=== PATIENT | female | born 1980 | race Asian ===

== ENCOUNTER 2021-09-10 21:38 | Inpatient (IN) ==
[2021-09-10] MEDS ORDERED: OXYTOCIN 30 UNITS/500 ML BAG IV PRN (22:18)
[2021-09-10] MEDS: LACTATED RINGER'S 1,000 ML IV PRN (22:35)
[2021-09-10 22:48] LABS: Hematocrit (blood only) 39.2 % (37-47); Hemoglobin 13.6 g/dL (12.0-16.0); Mean Corpuscular Hemoglobin 32.8 pg (25-34); Mean Corpuscular Hgb Conc 34.7 g/dL (32-36); Mean Corpuscular Volume 94.5 fL (80-100); Mean Platelet Volume 10.9 fL (7.4-10.4); Platelet Count 192 K/uL (130-400); RDW Coefficient of Variation 12.9 % (11.5-14.5); RDW Standard Deviation 44.5 fL (36.4-46.3); Red Blood Count 4.15 M/uL (4.2-5.4); White Blood Count 10.23 K/uL (4.8-10.8)
[2021-09-11] MEDS: LACTATED RINGER'S 1,000 ML IV PRN ×2 (00:53→06:01)
[2021-09-11] MEDS ORDERED: BUPIVACAINE 0.25% 30 ML VIAL ONE (01:04)
[2021-09-11] MEDS ORDERED: ePHEDrine sulfate 50 MG/ML AMP ONE (01:04)
[2021-09-11] MEDS ORDERED: SODIUM CHLORIDE 0.9% INJ 10 ML VIAL ONE (01:04)
[2021-09-11] MEDS ORDERED: fentaNYL 2MCG/ML ROPIVACAINE 1.25MG/ML 100 ML BAG EPI ONE (01:05)
[2021-09-11] MEDS ORDERED: fentaNYL citrate 100 MCG/2 ML VIAL ONE (01:05)
--- NOTE | 2021-09-11 01:35 | Anesthesiology Consultation ---
Date of Service September 11, 2021 Assessment & Plan (1) Encounter for pre-operative examination: Chart Review Chart Review: Acceptable Risk for Surgery and Patient NOT seen in Pre Admission Testing Consults Requested none History Height/Weight Height: 5 ft 2 in Weight: 61.235 kg Allergies Allergy/AdvReac Type Severity Reaction Status Date / Time No Known Allergies Allergy Verified 09/05/21 14:00 Medications Home Medications Medication Instructions Recorded Confirmed Last Taken aspirin 81 mg capsule 81 mg PO DAILY 07/29/21 09/10/21 09/10/21 21:50 prenat.vits,vineet,brj-qpdo-[id number] 1 tab PO DAILY 07/29/21 09/10/21 09/10/21 21:50 Active Medications Generic Name Dose Route Start Last Admin Trade Name Freq PRN Reason Stop Dose Admin Lactated Ringer's 1,000 mls @ 125 mls/hr 09/10/21 22:18 09/11/21 00:53 Lr IV 09/12/21 22:17 Infused .Q8H PRN Infusion L&D Protocol Protocol Past Medical History Medical History Varicella vaccination Past Family History Family History Father Stroke Hypertension Denies family history of Breast cancer Colorectal cancer Past Surgical History Surgical History Hx of wisdom tooth extraction Social History Smoking Status: Never smoker Hx Alcohol Use: No Hx Substance Use: No Physical Exam Vital Signs Last Vital Signs Temp 37.1 C 09/11/21 00:30 Pulse 100 H 09/10/21 21:45 Resp 18 09/11/21 00:30 BP 108/69 09/10/21 21:45 Testing Laboratory Results 09/10/21 22:27
[2021-09-11] MEDS ORDERED: NALOXONE HCL 1 MG in SODIUM CHLORIDE 0.9% 1000ML 1,000 ML IV PRN (02:06)
[2021-09-11] MEDS ORDERED: ONDANSETRON INJ 2 MG/ML 2 ML VIAL IV PRN (02:06)
[2021-09-11] MEDS ORDERED: NALOXONE HCL 0.4 MG/1 ML VIAL/CARP IV PRN (02:06)
[2021-09-11] MEDS ORDERED: NALBUPHINE HCL INJ 10 MG/ML AMP IV PRN (02:06)
[2021-09-11] MEDS ORDERED: fentaNYL 2MCG/ML ROPIVACAINE 1.25MG/ML 100 ML BAG EPI PRN (02:06)
[2021-09-11] MEDS ORDERED: ePHEDrine sulfate 50 MG/ML AMP IV PRN (02:06)
[2021-09-11] MEDS ORDERED: diphenhydrAMINE 50 MG/ML VIAL IV PRN (02:06)
--- NOTE | 2021-09-11 08:10 | Labor Progress Brief Note ---
Date of Service September 11, 2021 Subjective Comfortable with epidural Assessment & Plan (1) SROM (spontaneous rupture of membranes): Plan: Allowing spontaneous labor. Epidural. GBS neg. Anticipate . (2) Normal labor and delivery: (3) Elderly primigravida: Admission and Anticipated Discharge Date Admission Date: September 10, 2021 Physical Exam Genitourinary: 100/+1 FHT Cat 1 Wisner Q2-3 Results & Data ([facility]) Vital Signs (Past 12 Hours) Vital Signs Temp Pulse Resp BP Pulse Ox 09/11/21 08:06 114 H 89 L 09/11/21 08:05 105 H 117/77 99 09/11/21 08:00 100 H 99 09/11/21 07:55 104 H 99 09/11/21 07:50 119 H 97 09/11/21 07:48 106 H 114/73 09/11/21 07:45 99 H 99 09/11/21 07:40 95 H 99 09/11/21 07:35 110 H 115/71 99 09/11/21 07:30 98 H 100 09/11/21 07:25 100 H 99 09/11/21 07:20 111 H 99 09/11/21 07:19 97 H 115/69 09/11/21 07:15 105 H 99 09/11/21 07:10 109 H 98 09/11/21 07:05 109 H 98 09/11/21 07:04 97.9 F 99 H 20 129/76 09/11/21 07:00 102 H 98 09/11/21 06:55 100 H 99 09/11/21 06:50 100 H 97 09/11/21 06:49 94 H 118/70 09/11/21 06:45 102 H 98 09/11/21 06:40 101 H 99 09/11/21 06:35 108 H 99 09/11/21 06:33 102 H 111/65 09/11/21 06:30 99 H 99 09/11/21 06:25 99 H 97 09/11/21 06:20 101 H 98 09/11/21 06:18 102 H 109/65 09/11/21 06:16 98 H 93 09/11/21 06:15 106 H 98 09/11/21 06:10 92 H 96 09/11/21 06:05 92 H 98 09/11/21 06:04 95 H 110/67 09/11/21 06:00 94 H 98 09/11/21 05:55 96 H 97 09/11/21 05:50 93 H 98 09/11/21 05:48 90 107/68 09/11/21 05:45 90 97 09/11/21 05:40 95 H 98 09/11/21 05:35 187 H 83 L 09/11/21 05:34 88 143/70 H 09/11/21 05:33 85 92 09/11/21 05:30 86 100 09/11/21 05:27 90 91 09/11/21 05:25 89 18 99 09/11/21 05:20 94 H 93 09/11/21 05:18 95 H 114/62 09/11/21 05:15 94 H 95 09/11/21 05:10 88 100 09/11/21 05:05 88 98 09/11/21 05:04 102 H 116/69 09/11/21 05:00 98 H 87 L 09/11/21 04:59 98.6 F 18 09/11/21 04:57 95 H 94 09/11/21 04:55 95 H 92 09/11/21 04:50 92 H 94 09/11/21 04:49 190 H 102/62 09/11/21 04:45 89 100 09/11/21 04:44 87 91 09/11/21 04:40 96 H 99 09/11/21 04:35 92 H 83 L 09/11/21 04:30 94 H 65 L 09/11/21 04:25 95 H 88 L 09/11/21 04:24 92 H 91 09/11/21 04:20 98 H 100 09/11/21 04:15 94 H 100 09/11/21 04:12 99 H 93 09/11/21 04:10 98 H 100 09/11/21 04:05 84 100 09/11/21 04:03 94 H 97/58 L 09/11/21 04:00 87 100 09/11/21 03:56 94 H 91 09/11/21 03:55 94 H 93 09/11/21 03:50 90 109/64 92 09/11/21 03:49 90 88 L 09/11/21 03:44 87 80 L 09/11/21 03:39 97 H 90 09/11/21 03:38 95 H 93 09/11/21 03:34 88 98 09/11/21 03:33 90 117/68 09/11/21 03:31 87 89 L 09/11/21 03:30 98.4 F 18 09/11/21 03:29 85 99 09/11/21 03:24 94 H 100 09/11/21 03:23 83 90 09/11/21 03:19 85 100 09/11/21 03:18 89 100/62 85 L 09/11/21 03:14 88 100 09/11/21 03:09 85 97 09/11/21 03:04 90 100 09/11/21 03:03 82 105/61 09/11/21 03:00 18 09/11/21 02:59 87 100 09/11/21 02:54 87 100 09/11/21 02:49 92 H 108/61 100 09/11/21 02:44 92 H 87 L 09/11/21 02:39 102 H 100 09/11/21 02:34 100 H 112/65 99 09/11/21 02:31 91 H 93 09/11/21 02:30 18 09/11/21 02:29 100 H 98 09/11/21 02:24 104 H 100 09/11/21 02:20 18 09/11/21 02:19 103 H 100 09/11/21 02:18 107 H 112/64 09/11/21 02:16 111 H 105/62 09/11/21 02:15 18 09/11/21 02:14 104 H 114/72 99 09/11/21 02:12 106 H 110/68 09/11/21 02:10 102 H 18 110/67 09/11/21 02:09 103 H 100 09/11/21 02:08 97.5 F L 106 H 109/67 09/11/21 02:06 110 H 114/72 09/11/21 02:05 18 09/11/21 02:04 97 H 115/72 100 09/11/21 01:59 101 H 98 09/11/21 01:54 106 H 100 09/11/21 01:53 94 H 93 09/11/21 01:49 102 H 99 09/11/21 01:40 90 123/68 09/11/21 00:30 98.8 F 18 09/10/21 21:51 98.6 F 18 09/10/21 21:45 100 H 108/69 Coding Level of Care Code None Diagnoses SROM (spontaneous rupture of membranes) Normal labor and delivery O80 Elderly primigravida O09.519
[2021-09-11] MEDS ORDERED: OXYTOCIN 30 UNITS/500 ML BAG IV PRN (10:49)
[2021-09-11] MEDS ORDERED: Nursing to Pharmacy Communication SCH (11:30)
--- NOTE | 2021-09-11 14:08 | Delivery Summary ---
Vaginal Delivery Summary Date of Service September 11, 2021 Vaginal Delivery Summary DIAGNOSES: 1. Delgado intrauterine at 37w6d gestation. 2. Spontaneous onset of labor. 3. Group B Streptococcus Neg. PROCEDURE: Spontaneous vaginal delivery and repair of 2nd degree laceration. SURGEON: Elly Almnaza MD. MATERIAL CONTROL ASSOCIATE: None. ESTIMATED BLOOD LOSS: 400 mL. COMPLICATIONS: None. PLACENTA: Spontaneous and intact with a 3-vessel cord. DISPOSITION: Stable to labor and delivery. DESCRIPTION: The patient pushed well and brought the head to in DOA position. Due to prolonged and some labial edema, a midline episiotomy was offered and accepted. The 1cm midline epis was made, and with the next push, it was extended approximately another 5mm. The infant's head then delivered with a maternal pushing effort and restituted with the R shoulder anterior. There was no nuchal cord. Due to evidently large size, the patient was positioned in Frida prior to the next pushing effort, and gentle downward traction was applied through a concerted pushing effort by the mother, which resulted in delivery of the anterior shoulder. The posterior shoulder did not immediately deliver, but the maternal pushing effort was prolonged and uncoordinated, and many voices were coaching her at once. I asked for quiet, asked the mother to take a focused breath, and to make a single strong pushing effort, which delivered the posterior shoulder promptly without any maneuvers. The complete delivery of the shoulders was less than 60 seconds from delivery of the head, hence I do not feel a dignosis of dystocia is formally merited. The body delivered without any difficulty, and the was placed on the maternal abdomen. It was vigorous and moving all extremities, and making respiratory efforts. The cord was doubly clamped by the MD and then cut by the FOB. The placenta delivered spontaneously and was noted to be intact and with a 3VC. The cervix, vagina and perineum were examined and were found to have what amounted to a second degree laceration, the majority of which was likely the episiotomy with perhaps a tiny bit of natural extension. The sphincter was exposed but not involved, and a hemorrhoid approx 2cm in size which had developed during 2nd stage was loose and deflating. Repair of the perineum was accomplished with 2-0 and 3-0 vicryl in the usual manner, using a crown stitch to rebuild the perineal body. The fundus was firm and lochia minimal immediately after delivery. [facility] Vaginal Delivery Charge Vaginal Delivery Codes: 30756 global code for the antepartum, delivery, and post-
[2021-09-11] MEDS ORDERED: DIPHTHERIA/TETANUS/PERTUSSIS 0.5 ML SYR/VIAL IM ONE (14:13)
[2021-09-11] MEDS ORDERED: BENZOCAINE 20% AER SPR 82.5 GM CAN EXT PRN (14:13)
[2021-09-11] MEDS ORDERED: HYDROCORTISONE ACETATE 25 MG SUPP PR PRN (14:13)
[2021-09-11] MEDS ORDERED: ACETAMINOPHEN 325 MG TAB PO PRN (14:13)
[2021-09-11] MEDS ORDERED: oxyCODONE/ACETAMINOPHEN 5mg/325mg TAB PO PRN (14:13)
[2021-09-11] MEDS ORDERED: SUPERCREAM 0.870% 15 GM JAR EXT PRN (14:13)
--- NOTE | 2021-09-11 14:37 | Anesthesia Procedure Note ---
Date of Service September 11, 2021 Anesthesia Post Epidural Note Vital Signs Vital Signs: Temp Pulse Resp BP Pulse Ox 36.9 C 113 H 20 97/55 L 94 09/11/21 08:48 09/11/21 14:33 09/11/21 08:48 09/11/21 14:33 09/11/21 13:48 Notes Mental Status: alert / awake / arousable Nausea / Vomiting: adequately controlled Pain: adequately controlled Airway Patency, RR, SpO2: stable & adequate BP & HR: stable & adequate Hydration State: stable & adequate Neuraxial Anesthesia: was administered and sensory block is resolving Anesthetic Complications: no major complications apparent Epidural: Removed without complications and With tip intact
[2021-09-11] MEDS: DOCUSATE SODIUM 100 MG CAP PO SCH (21:01)
[2021-09-11] MEDS: IBUPROFEN 600 MG TAB PO PRN (21:01)
[2021-09-12] MEDS: IBUPROFEN 600 MG TAB PO PRN ×5 (01:19→18:00)
--- NOTE | 2021-09-12 06:05 | Obstetrical Progress Note ---
Date of Service <Otilia NormDO - Last Filed: 09/12/21 06:21> September 12, 2021 Assessment & Plan <Otilia Zheng DO - Last Filed: 09/12/21 06:21> (1) Encounter for care and examination after delivery: 41 yo post day1 from [facility] , doing well. -Continue routine post care. -vital signs reviewed and WNL (Tmax 36.5) -Blood Type B+, GBS-, Rubella + -Encourage ambulation, monitor and control pain with Motrin, tylenol PRN, resume regular diet, monitor lochia -encourage breast feeding -hemoglobin 13.6 Day #:: 1 <Elly Almanza MD - Last Filed: 09/12/21 07:22> (1) Encounter for care and examination after delivery: Subjective <Otilia NormDO - Last Filed: 09/12/21 06:21> Ambulation: ambulating normally Voiding: no voiding problems Passing Gas:: Yes Diet Tolerance:: regular diet Lochia:: Small Feeding Type:: breast feeding Current Pain Level(1-10): 1 (pain well controlled on medication) Review of Systems Denies fever, chills, sweats Denies shortness of breath, difficulty breathing, chest pain, palpitations, chest pressure. Denies breast pain. Denies dysuria. Denies headache or changes in vision. Physical Exam <Otilia NormDO - Last Filed: 09/12/21 06:21> General: Alert, oriented. No acute distress. Cardiac: Regular rate and rhythm, no murmurs/rubs/gallops. Respiratory: Clear to auscultation bilaterally a/p, no wheezes/rales/rhonchi. No increased work of breathing. Symmetrical chest rise. No respiratory distress. Abdomen: Soft, nontender, nondistended. Bowel sounds present. Uterus: Uterine fundus firm, palpable at umbilicus. Lower Extremities: No lower extremity edema or swelling. No deep calf pain. Sahly's negative bilaterally.. Results & Data ([facility]) <Otilia Zheng DO - Last Filed: 09/12/21 06:21> Vital Signs (Past 12 Hours) Vital Signs Temp Pulse Pulse Resp BP Pulse Ox 09/12/21 04:40 36.5 C 85 16 100/63 97 09/11/21 23:05 36.3 C L 91 H 16 98/60 L 97 09/11/21 19:45 36.8 C 99 H 16 103/66 97 <Elly Almanza MD - Last Filed: 09/12/21 07:22> Co-Signing Physician Notes Resident Physician Supervision Note: I interviewed and examined the patient. Discussed with Dr. Zheng and agree with findings and plan as documented in the note. Any exceptions or clarifications are listed here: Patient in shower at time of rounds. FOB agrees with resident note above that recovery is going well. Vitals, labs, note reviewed. Plan will be routine PPD#1 care. Documented By: Elly Almanza MD, FACOG Resident Activity Tracking <Otilia Zheng DO - Last Filed: 09/12/21 06:21> Resident Involvement: Resident Care Provided Care Provided: Adult Hospital Medicine
[2021-09-12 07:22] LABS: Hematocrit (blood only) 33.5 % (37-47); Hemoglobin 11.5 g/dL (12.0-16.0); Mean Corpuscular Hemoglobin 32.6 pg (25-34); Mean Corpuscular Hgb Conc 34.3 g/dL (32-36); Mean Corpuscular Volume 94.9 fL (80-100); Mean Platelet Volume 10.7 fL (7.4-10.4); Platelet Count 135 K/uL (130-400); RDW Coefficient of Variation 12.9 % (11.5-14.5); RDW Standard Deviation 44.2 fL (36.4-46.3); Red Blood Count 3.53 M/uL (4.2-5.4); White Blood Count 19.57 K/uL (4.8-10.8)
[2021-09-12] MEDS: PRENATAL VITAMIN 1 TAB PO SCH (07:57)
[2021-09-12] MEDS: DOCUSATE SODIUM 100 MG CAP PO SCH ×2 (07:57→20:32)
[2021-09-13] MEDS: IBUPROFEN 600 MG TAB PO PRN ×2 (02:53→08:49)
[2021-09-13 05:46] LABS: Hematocrit (blood only) 36.2 % (37-47); Hemoglobin 12.4 g/dL (12.0-16.0)
--- NOTE | 2021-09-13 06:57 | Obstetrical Progress Note ---
Date of Service <Otilia NormDO - Last Filed: 09/13/21 07:20> September 13, 2021 Assessment & Plan <Otilia NormDO - Last Filed: 09/13/21 07:20> (1) Encounter for care and examination after delivery: (2) Elderly primigravida: 41 yo post day2 from [facility] with advanced maternal age, doing well. -Continue routine post care. -vital signs reviewed and WNL (Tmax 36.8) -Blood Type B+, GBS-, Rubella + -Encourage ambulation, monitor and control pain with Motrin, tylenol PRN, resume regular diet, monitor lochia -encourage breast feeding -hemoglobin 12.4 -patient comfortable with discharge today Day #:: 2 <Nicole Gonzalez MD, FACOG - Last Filed: 09/13/21 07:31> (1) Encounter for care and examination after delivery: (2) Elderly primigravida: Subjective <Otilia Zheng DO - Last Filed: 09/13/21 07:20> Ambulation: ambulating normally Voiding: no voiding problems Passing Gas:: Yes Diet Tolerance:: regular diet Lochia:: Small Feeding Type:: breast feeding Current Pain Level(1-10): 1 Review of Systems Negative fever chills Negative headache dizziness Negative chest pain palpitations SOB Negative nausea vomitting diarrhea constipation Negative numbness tingling rash swelling Physical Exam <Otilia NormDO - Last Filed: 09/13/21 07:20> General: Alert, oriented. No acute distress. Cardiac: Regular rate and rhythm, no murmurs/rubs/gallops. Respiratory: Clear to auscultation bilaterally a/p, no wheezes/rales/rhonchi. No increased work of breathing. Symmetrical chest rise. No respiratory distress. Abdomen: Soft, nontender, nondistended. Bowel sounds present. Uterus: Uterine fundus firm, palpable at umbilicus. Lower Extremities: No lower extremity edema or swelling. No deep calf pain. Ashly's negative bilaterally.. Results & Data ([facility]) <Otiliagavin Zheng DO - Last Filed: 09/13/21 07:20> Vital Signs (Past 12 Hours) Vital Signs Temp Pulse Resp BP 09/13/21 00:00 36.4 C L 84 18 101/64 <Nicole Gonzalez MD, FACOG - Last Filed: 09/13/21 07:31> Co-Signing Physician Notes Resident Physician Supervision Note: I was present with [Name of resident] during the history and exam. I discussed the case with the resident and agree with the findings and plan as documented in the note. Any exceptions or clarifications are listed here: [None] Documented By: Nicole Gonzalez MD, FACOG Resident Activity Tracking <Otilia Zheng DO - Last Filed: 09/13/21 07:20> Resident Involvement: Resident Care Provided Care Provided: Adult [facility] Medicine
[2021-09-13] MEDS: DOCUSATE SODIUM 100 MG CAP PO SCH (08:46)
[2021-09-13] MEDS: PRENATAL VITAMIN 1 TAB PO SCH (08:46)
== END 2021-09-13 13:30 | disposition home or self-care (01) | DRG 807 ==
LOC: OPB 21:38 → 4S1 21:40 → 4S2 09-11 16:47
DX: Z79.82 Long term (current) use of aspirin; O70.1 Second degree perineal laceration during delivery; O42.92 Full-term premature rupture of membranes, unspecified as to length of time between rupture and onset of labor; Z37.0 Single live birth; Z3A.38 38 weeks gestation of pregnancy